=== PATIENT | male | born 1985 | race Caucasian/White ===

== ENCOUNTER 2020-11-23 11:46 | Emergency (ER) | payer SELFPAY ==
[~2020-11-23] VITALS: Ht 162.6 cm; Wt 68.1 kg
[2020-11-23 12:02] VITALS: BP 114/65
[2020-11-23] MEDS ORDERED: IBUP600T16 PO (12:14)
[2020-11-23] MEDS ORDERED: AMOX1TAB61 PO (12:14)
--- NOTE | 2020-11-23 12:16 | PHYS DOC ---
Adult General Chief Complaint Chief Complaint: DENTAL PROBLEM HPI HPI Patient is a 35-year-old male presents emergency department complaining of left lower rear tooth pain for the past 2 weeks. Patient reports that he has not brushed his teeth in several years, reports he has had problems with dental de carlos. Reports he does not have insurance or a job to pay for dental care. Patient reports 10 out of 10 pain. Patient denies recent fever or chills. Patient denies loss of sensation to his tongue or mouth. Patient denies other physical complaints or physical concerns. (JC IBARRA APRN) Review of Systems Review of Systems 14 body systems of review of systems have been reviewed. See HPI for pertinent positives and negative responses, otherwise all other systems are negative, nonpertinent or noncontributory. Constitutional: Negative except as outlined in HPI above. Skin: Negative except as outlined in HPI above. Eyes: Negative except as outlined in HPI above. HENT: Negative except as outlined in HPI above. Respiratory: Negative except as outlined in HPI above. Cardiovascular: Negative except as outlined in HPI above. GI: Negative except as outlined in HPI above. : Negative except as outlined in HPI above. Musculoskeletal: Negative except as outlined in HPI above. Integument: Negative except as outlined in HPI above. Neurologic: Negative except as outlined in HPI above. Endocrine: Negative except as outlined in HPI above. Lymphatic: Negative except as outlined in HPI above. Psychiatric: Negative except as outlined in HPI above. (JC IBARRA APRN) Physical Exam Physical Exam C constitutional: Well developed, well nourished, no acute distress, non-toxic appearance. 35-year-old male in no apparent distress. HENT: Normocephalic, atraumatic. Oropharynx moist, pink, no uvular deviation swelling or edema, no deep tissue infectious process appreciated. Marked dental caries, all remaining teeth in various stages of dental decay with multiple broken teeth. Lower left most rear molar broken with scant purulent drainage from pulp. No jaw swelling, marked gingivitis without gum bleeding. No tongue deviation, no loss of sensation to the tongue or mouth. Patient speaking in normal voice tones. No drooling, no trismus. Eyes: Conjunctiva normal, no discharge. Neck: Normal range of motion, no stridor. Cardiovascular: No cyanosis appreciated, distal cap refill less than 2 seconds. Lungs & Thorax: Patient is in no respiratory distress, no audible adventitious lung sounds appreciated. Abdomen: Nontender, no abnormalities noted. Skin: Warm, dry, no erythema, no rash. [] Back: No tenderness, no deformities. Extremities: No tenderness, no cyanosis, no clubbing, ROM intact, no edema. [] Neurologic: Alert and oriented X 3, normal motor function, normal sensory function, no focal deficits noted. Psychologic: Affect normal, judgement normal, mood normal. (JC IBARRA APRN) EKG EKG [] (JC IBARRA APRN) Radiology/Procedures Radiology/Procedures [] (JC IBARRA APRN) Heart Score C/O Chest Pain: No Risk Factors: Risk Factors: DM, Current or recent (<one month) smoker, HTN, HLP, family history of CAD, obesity. Risk Scores: Risk Factors: DM, Current or recent (<one month) smoker, HTN, HLP, family history of CAD, obesity. (JC IBARRA APRN) Course & Med Decision Making Course & Med Decision Making Pertinent Labs and Imaging studies reviewed. (See chart for details) 35-year-old male, vital signs reviewed, presents emergency department concerning dental pain for the past 2 weeks. Physical examination reveals marked dental caries. Discussed with patient will start on oral antibiotics and NSAID for pain relief, strict follow-up with dentist, will provide dental referral clin ics, call today for an appointment soon, patient is amendable to ED discharge planning. Discussed with the patient all findings and diagnostic testing as well as the need to follow-up with their primary care provider for further evaluation and treatment or return to the ED if any new or worsening symptoms. Strict return precautions were also discussed at length, the patient voiced understanding and agreement with the discharge planning. The patient was nontoxic in appearance, in no apparent distress, and hemodynamically stable at the time of disposition. (JC IBARRA APRN) Course & Med Decision Making I was the Attending physician on the above date of service of this patient. This patient was evaluated, examined, treated, and dispositioned from the emergency department by the mid-level practitioner. Although I was working at the time , no assistance was requested. Electronically signed, Gabbie Basurto DO (GABBIE BASURTO DO) [place] Disclaimer [place] Disclaimer This electronic medical record was generated, in whole or in part, using a voice recognition dictation system. (JC IBARRA APRN) Departure Departure: Impression: Primary Impression: Dentalgia Additional Impressions: Dental caries Pulpitis Dental abscess Disposition: HOME / SELF CARE / HOMELESS Condition: GOOD Referrals: PCP,NO (PCP) Patient Instructions: Dental Abscess Additional Instructions: You were seen today in the emergency department for dental pain. You have a dental infection of your left lower most rear molar. I am prescribing you pain medication and antibiotics, please take your antibiotics as directed until complete. I am providing you with a list of area dental clinics, please call today for the soonest appointment. You may use warm salt water swish and spit therapy to aid in discomfort. Please continue to provide good oral/dental care with daily toothbrushing at least twice a day as this will aid in preventing further dental infections and decay. Please return the emergency department for worsening symptoms or other concerns. Thank you for visiting our Emergency Department. It was a pleasure taking care of you today in the emergency department and we appreciate you trusting us with your care. If any additional problems come up don't hesitate to return to visit us. Please follow up with your primary care provider so they can plan additional care if needed and know about the problem that you had. If symptoms worsen come back to the Emergency Department. Any concerning symptoms that start such as chest pain, shortness of air, weakness or numbness on one side of the body, running high fevers or any other concerning symptoms return to the ER. Scripts Ibuprofen (IBUPROFEN) 600 Mg Tablet 600 MG PO Q6-8HRS PRN for PAIN, #30 TAB 0 Refills Prov: JC IBARRA APRN 11/23/20 Amoxicillin/Potassium Clav (AUGMENTIN 875-125 TABLET) 1 Each Tablet 1 TAB PO BID for dental infection for 14 Days, #28 TAB 0 Refills Prov: JC IBARRA APRN 11/23/20 Problem Qualifiers JC IBARRA APRN Nov 23, 2020 12:16 GABBIE BASURTO DO Nov 25, 2020 12:07
[2020-11-23] MEDS ORDERED: IBUPROFEN 600 MG TABLET. PO ONE (12:30)
[2020-11-23] MEDS ORDERED: AMOXICILLIN/K CLAV 875/125MG TABLET. PO ONE (12:30)
[2020-11-23] MEDS ORDERED: HYDROcodone/APAP 5/325MG 1 TAB TABLET PO ONE (12:30)
== END 2020-11-23 12:41 | disposition home or self-care (01) ==
LOC: ER 11:46
DX: K02.9 Dental caries, unspecified (principal); K04.7 Periapical abscess without sinus; K04.01 Reversible pulpitis
CPT/HCPCS: 99284